=== PATIENT | female | born 1990 | race Caucasian/White ===

== ENCOUNTER 2016-09-02 13:59 | Inpatient (IN) | payer OTHER ==
[~2016-09-02] VITALS: Ht 154.9 cm; Wt 65.3 kg
[2016-09-02] MEDS ORDERED: LACTATED RINGER'S 1000ML 1,000 ML IV PRN (14:17)
--- NOTE | 2016-09-02 14:21 | Progress Note ---
Progress Note Date of Service Sep 02, 2016. Progress Note Admit Note 26 F P2002 at 37.6 weeks admitted in active labor. Cervix 8/100/-1/vertex/ intact. GBS is negative. FHT Cat 1. Will admit in active labor.
[2016-09-02] MEDS ORDERED: LACTATED RINGER'S 1000ML 1,000 ML IV SCH ×2 (14:30→15:07)
[2016-09-02] MEDS ORDERED: PATIENT'S ALLERGY INFO NEEDS ENTERED SCH (14:30)
[2016-09-02 14:44] LABS: HEMATOCRIT 37.9 % (37-47); MEAN CELL VOLUME 84.2 fL (80-100); MEAN CORPUSCULAR HEMOGLOBIN 30.7 pg (25-34); MEAN CORPUSCULAR HGB CONC 36.4 g/dl (32-36); MEAN PLATELET VOLUME 10.2 fL (7.4-10.4); PLATELET COUNT 268 K/uL (130-400); WHITE BLOOD COUNT 14.94 K/uL (4.8-10.8)
[2016-09-02] MEDS ORDERED: OXYTOCIN 30 UNITS/500ML NSS IV ONE (14:50)
--- NOTE | 2016-09-02 14:50 | Progress Note ---
Progress Note Date of Service Sep 02, 2016. Progress Note cervix with anterior lip/0 AROM with clear fluid FHT Cat 1
--- NOTE | 2016-09-02 15:13 | Vaginal Delivery Summary ---
Vaginal Delivery Summary Delivery Note live male over intact perineum with Apgars 9/9. Delayed cord clamping followed by cord blood collection and spontaneous delivery of intact placenta. No tears. EBL 200 ml. Final sponge and instrument count are correct. Mom and baby stable.
[2016-09-02] MEDS ORDERED: BENZOCAINE 20% AER SPR 82.5 GM CAN EXT PRN (15:15)
[2016-09-02] MEDS ORDERED: DIPHTHERIA/TETANUS/PERTUSSIS 0.5 ML SYR/VIAL IM. ONE (15:15)
[2016-09-02] MEDS ORDERED: SUPERCREAM 0.870 % 15GM JAR EXT PRN (15:15)
[2016-09-02] MEDS ORDERED: LANOLIN OINT EXT PRN ×2 (15:15)
[2016-09-02] MEDS ORDERED: ACETAMINOPHEN/CODEINE 300/30MG TAB PO PRN (15:15)
[2016-09-02] MEDS ORDERED: OXYTOCIN 30 UNITS/500ML NSS IV PRN (15:15)
[2016-09-02] MEDS ORDERED: IBUPROFEN 600 MG TAB PO PRN (15:15)
[2016-09-02] MEDS ORDERED: HYDROCORTISONE ACETATE 25 MG SUPP PR PRN (15:15)
[2016-09-02] MEDS ORDERED: PRENTAB26 PO (15:28)
[2016-09-02] MEDS ORDERED: CALC-51 (15:28)
[2016-09-02] MEDS ORDERED: [UNRECOGNIZED DRUG - CODE] (15:28)
[2016-09-02] MEDS ORDERED: OMEG340C (15:28)
[2016-09-02 15:32] VITALS: Ht 154.9 cm; Wt 65.3 kg
[2016-09-02 16:07] LABS: INR 0.9 (0.9-1.1); PARTIAL THROMBOPLASTIN RATIO 1.4
[2016-09-02 16:26] LABS: CREATININE 0.95 mg/dl (0.60-1.20)
[2016-09-02 18:30] VITALS: BP 118/82; PULSE 101; TEMP 37.2; O2SAT 98
[2016-09-02] MEDS: ACETAMINOPHEN 325 MG TAB PO PRN (20:13)
[2016-09-02] MEDS: DOCUSATE SODIUM 100 MG CAP PO SCH (20:13)
[2016-09-02 23:40] VITALS: BP 105/63; PULSE 82; TEMP 36.9; O2SAT 97
[2016-09-03 02:25] VITALS: BP 116/77; PULSE 65; TEMP 36.6; O2SAT 99
[2016-09-03] MEDS: ACETAMINOPHEN 325 MG TAB PO PRN ×2 (03:48→14:00)
[2016-09-03 07:30] VITALS: BP 106/73; PULSE 85; TEMP 36.7; O2SAT 98
--- NOTE | 2016-09-03 07:33 | OB/GYN Progress Note ---
[facility] Progress Note Date of Service: Sep 03, 2016. Patient is seen and examined. She feels well, no complaints. Ambulating without dizziness Voiding without difficulty Tolerating regular diet with out N&V Bleeding is minimal No fever/ chills/ CP/ SOB/ N&V/ Leg pain Breast feeding without problems Last 24 Hours Test 09/02/16 14:30 09/02/16 15:40 09/03/16 04:44 White Blood Count 14.94 K/uL Red Blood Count 4.50 M/uL Hemoglobin 13.8 g/dL Hematocrit 37.9 % Mean Corpuscular Volume 84.2 fL Mean Corpuscular Hemoglobin 30.7 pg Mean Corpuscular Hemoglobin Concent 36.4 g/dl RDW Standard Deviation 39.9 fL RDW Coefficient of Variation 13.2 % Platelet Count 268 K/uL Mean Platelet Volume 10.2 fL Prothrombin Time 10.0 SECONDS Prothromb Time International Ratio 0.9 Activated Partial Thromboplast Time 37.1 SECONDS Partial Thromboplastin Ratio 1.4 Creatinine 0.95 mg/dl Est Creatinine Clear Calc Drug Dose 76.9 ml/min Estimated GFR () 95.1 Estimated GFR (Non- 82.1 PE: General: Alert, orientedx3, NAD Abd: soft, NT, fundus firm, below Umbilicus Perineum intact, Lochia rubra minimal Ext; NT, no edema AP: 26 yo s/p , ppd# 1 VSS Afebrile doing well Continue routine care All questions were answered D/C home: considering d/c home tonight
[2016-09-03] MEDS ORDERED: LVNIS40 SQ (07:36)
--- NOTE | 2016-09-03 07:37 | Discharge Instructions ---
Discharge Instructions Date of Service Sep 03, 2016. Admission Reason for Admission: R/O Labor Discharge Discharge Diagnosis / Problem: Discharge Goals Goal(s): Routine recovery after delivery Medications Continue Dispensed Medications: lansinoh Activity Recommendations Activity Limitations: as noted below Lifting Limitations: until after follow-up appointment Exercise/Sports Limitations: until after follow-up appointment May Resume Sexual Activity: after follow-up appointment Shower/Bathe: no limitations Driving or Machine Use: ACTIVITY RECOMMENDATIONS: * Gradual return to full activity over the next 2-3 weeks. * No lifting - nothing heavier than baby over the next 2-3 weeks. * Do not engage in vigorous exercise, sexual activity or sports until cleared by your physician. * Do not drive or operate any motorized equipment until cleared by your physician. * You may shower/bathe daily. BREAST CARE: If you are not breast feeding: * Wear a supportive bra 24 hours a day for one to two weeks. * Avoid stimulating your breasts and nipples as much as possible during the first few weeks after delivery. * When taking a shower, have the warm water hit your back, not breasts. * When your breasts feel full, apply ice packs. Usually three to four times a day helps ease the discomfort. * Take a mild pain medication (Tylenol/Motrin) when you are uncomfortable. If breast feeding: * Use breast milk to lubricate nipples. Lansinoh cream may be used for sore nipples. You do not need to remove cream prior to breast feeding. If using a different brand of cream, check the label for directions regarding removal of cream prior to nursing. * Wear a supportive bra. * If having problems with breasts or breast feeding, call a healthcare network pricing consultant or your health care provider. EPISIOTOMY CARE: After delivery, if you have an episiotomy (stitches), the following steps will ease discomfort and aid healing. * For the first 24 hours after delivery, place ice packs next to your episiotomy to help reduce swelling. * After the first 24 hour-period, sitz baths, either portable or in the tub, are suggested. A shower with a shower arm sprayed over the episiotomy may be comforting. * [place] care should be done after each voiding and bowel movement. Squirt warm water from a plastic bottle over the perineum (region of the body between the anus and urinary opening) and pat dry. * Use Dermoplast to ease discomfort. Shake container. [place] directly over the episiotomy. * Place a Tucks on a clean sanitary pad next to your episiotomy. OVER THE COUNTER MEDICATION: * For discomfort or pain, you may use Acetaminophen (Tylenol), Ibuprofen (Advil ), or Naproxen (Aleve) following the package directions. * For constipation you may use Colace following the package directions. SPECIAL CARE INSTRUCTIONS: When you are discharged from the hospital, it is important for you to follow the instructions listed below: * During the first week at home, you should be able to care for yourself and your baby. In addition, the usual light household activities are encouraged. * Limit your activities to the way you feel. Do not try to clean the house or move furniture. Be sensible. * If you actively engage in sports and have done so up until the time of your delivery, you may resume these activities as soon as you feel able. This may take up to one month or even longer. Use good judgment. * Continue to take your vitamins for at least six weeks after the of your baby. * Your diet need not be limited unless you were on a special diet before your delivery. Breast-feeding mothers need around 2500 calories per day and at least 64-80 ounces of fluid per day (8 to 10 glasses). * You should eat foods from the four major food groups. Crash diets or fad diets are to be avoided. Eating lean meats, fresh fruits and vegetables, low-fat dairy products, high fiber foods and a regular exercise program, will help you get back to your pre- weight without putting your health at risk. * Constipation is sometimes a problem after delivery. Take a mild laxative as needed. If breast feeding, Milk of Magnesia is acceptable to use. You may use a suppository or Fleets enema if no episiotomy. * A daily shower or tub bath is suggested. Be sure to thoroughly and gently dry the perineum. * A bloody vaginal discharge will usually continue until around four weeks post . A small amount of bleeding may continue for as long as six weeks. Vaginal discharge changes from the bright red bleeding after delivery to pink then brownish and finally yellowish-pink before becoming white and disappearing. * Bleeding may increase with activity. Your first period may come in 4-8 weeks. If you are breast feeding, your period may be delayed even longer. * [place] (sex) can begin whenever both you and your partner feel comfortable and do not have any form of genital infection. It is recommended that you wait until after your return appointment and discuss with your physician. If you have questions, please talk to your health care practitioner. A condom should be used to prevent infection and . * Foreplay, gentle intercourse and lubrication is very important the first several times to prevent pain. A water-based lubricant such as K-Y jelly or Astroglide may be used. * Tampons may be used six weeks after delivery. * Douching should be avoided for 6 weeks after delivery. * If you have RH negative blood and your baby is RH positive, you will receive RHOGAM by injection prior to discharge. The nurse will give you a card to keep with you that has the date and place that you received RHOGAM after delivery. * During your care, you had a Rubella screen done to check for the presence of rubella antibodies in your blood. If your test was negative, you will receive a Rubella vaccine prior to discharge. This vaccine may cause a fever, soreness at the injection site and flu-like symptoms. If these symptoms persist, notify your health care practitioner. is not advised for three months after a Rubella vaccine. There is a higher chance of having a baby with defects if conceived within three months of getting the vaccine. * If you were discharged 24 hours from delivery or before 48 hours: Visiting nurses will come to your home 48 hours after discharge to assess you and your baby. The visiting nurse will meet with you while you are in the hospital to arrange a time and get directions to your home. * Verbalizes understanding of car seat law as reviewed with patient nursing. * Car Seat hand-out given and reviewed with patient by nursing. * Shaken baby information reviewed with patient by nursing. Call you doctor if: * Heavy bleeding (saturating several pads an hour) or passing clots the size of your fist. * A fever >101 degrees F (38.3 degrees C) on two occasions four hours apart and/or chills. * Unusual pain in the pelvic or vaginal areas. * "Baby Blues" lasting longer than two weeks. If you have any questions or concerns, call your health care practitioner at . FOLLOW-UP VISIT: * Please call the office at to schedule a 6 week examination. It is important you keep this appointment. * It is important for you to make arrangements for either yearly or twice yearly check-ups thereafter. . Current Hospital Diet Patient's current hospital diet: Regular OB Diet Discharge Diet Recommended Diet: Regular Diet Pending Studies Studies pending at discharge: no Medical Emergencies . Who to Call and When: Medical Emergencies: If at any time you feel your situation is an emergency, please call 911 immediately. . Non-Emergent Contact Non-Emergency issues call your: Surgeon Call Non-Emergent contact if: temperature is above 100.5, your pain is not controlled, your pain is worsening . . "Provider Documentation" section prepared by Melisa Fu. . VTE Core Measure Inpt VTE Proph given/why not?: Enoxaparin (Lovenox)SQ
[2016-09-03] MEDS: DOCUSATE SODIUM 100 MG CAP PO SCH (07:51)
[2016-09-03] MEDS ORDERED: PRENATAL VITAMIN TAB PO SCH (08:00)
[2016-09-03] MEDS ORDERED: FERROUS SULFATE 325 MG TAB PO SCH (08:00)
[2016-09-03] MEDS ORDERED: ENOXAPARIN 40 MG/0.4 ML SYR SQ SCH (08:00)
[2016-09-03 12:02] VITALS: BP 102/70; PULSE 85; TEMP 36.7; O2SAT 98
[2016-09-03 15:30] VITALS: BP 121/71; PULSE 83; TEMP 36.8
[2016-09-03 19:25] VITALS: BP_DIAS 71; PULSE 83; TEMP 36.8
[2016-09-03] MEDS ORDERED: BISACODYL 5 MG TABEC PO SCH (20:00)
[2016-09-04] MEDS ORDERED: BISACODYL 10 MG SUPP PR PRN (07:00)
== END 2016-09-03 19:25 | disposition home or self-care (01) | DRG 775 ==
LOC: C.LD 13:59 → C.OPB 13:59 → C.LD 14:19 → C.OPB 14:19 → C.OBG 17:57 → EDSTATUS 09-17 14:00
PROVIDERS: ADMIT Obstetrics & Gynecology; ATTEND Obstetrics & Gynecology
PROC: 10E0XZZ Delivery of Products of Conception, External Approach (ICD-10-PCS; principal; 2016-09-02)
DX: O80 Encounter for full-term uncomplicated delivery (principal); Z37.0 Single live birth; Z3A.37 37 weeks gestation of pregnancy

== ENCOUNTER 2024-09-21 19:25 | Inpatient (IN) ==
[2024-09-21 19:48] LABS: Hematocrit (blood only) 38.1 % (37.0-47.0); Hemoglobin 12.0 g/dl (12.0-16.0); Immature Granulocytes # (auto) 0.07 K/uL (0.01-0.20); Immature Granulocytes % (auto) 0.5 %; Mean Corpuscular Hemoglobin 23.3 pg (25.0-34.0); Mean Corpuscular Volume 74.0 fL (80.0-100.0); Platelet Count 405 K/uL (130-400); RDW Standard Deviation 44.0 fL (36.4-46.3); Red Blood Count 5.15 M/uL (4.20-5.40); White Blood Count 15.45 K/ul (4.8-10.8)
--- NOTE | 2024-09-21 19:52 | Emergency Department Note ---
Impression & Plan Bilateral pulmonary embolism, Acute deep vein thrombosis (DVT) of left lower extremity ED Provider Note CHIEF COMPLAINT: Left leg pain HISTORY OF PRESENTING ILLNESS: This 34-year-old female patient presents to the emergency department for evaluation of left lower leg pain. 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 She states that her left leg is swollen, warm to the touch, and painful in her calf. She initially had pain with walking 3 days ago, but it is getting progressively worse and now has the swelling and warmth. She has been trying Tylenol and Icy Hot without improvement. Her DVT in the right leg was in 2012 that was believed to be triggered by . She was treated with Lovenox at that time. She states that she had the hypercoagulable workup at that time, but states that she was not told there were any abnormalities at that time. She is not on any blood thinners currently. No pain of the right leg. She denies any chest pain or SOB. She denies any other symptoms. She had a bee sting to the right leg last week and completed a course of steroids and antibiotics. The patient denies recent long car or plane rides or recent injury/trauma/surgery. Her grandfather had a history of blood clots. Denies any hormonal medication use. Denies any hemoptysis. REVIEW OF SYSTEMS: See HPI for pertinent positives and pertinent negatives. ALLERGIES: Oxycodone, Benadryl, Ibuprofen, Lidocaine, Medical Adhesive MEDICATIONS: None PAST MEDICAL HISTORY: History of DVT. Partial thyroidectomy for benign tumor PHYSICAL EXAM: VITALS: Vitals are noted on the nurse's note and reviewed by myself. GENERAL: Non toxic, in no acute distress, non-diaphoretic. SKIN/MUSCULOSKELETAL: The patient has edema and warmth to the posterior aspect of the left lower extremity with some induration distally. No fluctuance. No obvious cording. No significant redness and no ecchymosis. No bony tenderness to palpation of the left lower extremity. Positive Homans' sign. Full range of motion of the left ankle, toes, and knee with no evidence for septic arthritis. Normal sensation to light and sharp touch of the left lower extremity. Dorsalis pedis and posterior tibial pulse 2+. Capillary refill <2 sec. HEART: Regular rate and rhythm without murmurs gallops or rubs. LUNGS: Clear to auscultation bilaterally without wheezes, rales or rhonchi. No retractions or accessory muscle use. NEURO: Patient was alert and oriented. No focal neurological deficits. DIFFERENTIAL DIAGNOSIS: Differential diagnosis includes DVT, phlebitis, superficial venous thrombosis, contusion, musculoskeletal, infection, joint effusion, trauma, lymphedema, idiopathic, CHF, as well as other pathologies. ED COURSE AND MEDICAL DECISION MAKING: MEDICATIONS GIVEN: 1 L normal saline solution bolus. Tylenol 1000 mg IV. Heparin weight-based bolus and drip. MONITOR: Continuous alarm security or surveillance monitor: Order was placed for continuous alarm security or surveillance monitor. Patient was placed on the alarm security or surveillance monitor and continuous pulse ox. Patient was noted to be in normal sinus rhythm at an initial rate of 98 bpm per my interpretation. EKG: EKG was interpreted by myself as sinus tachycardia at [address]pm with no acute [address] or T wave changes. INTERPRETATION OF LABS: I interpreted the labs with full lab results as below in the lab section of this note. Laboratory results pertinent to the emergent complaint are discussed in the MDM section below. The patient was advised to follow up with their PCP and/or specialist(s) for further outpatient monitoring and management of any abnormal results. INTERPRETATION OF IMAGING: Imaging studies were interpreted by myself and read by radiology as per the imaging section of this note. The patient was advised to follow up with their PCP and/or specialist(s) for further outpatient management of any non-emergent abnormal findings. Venous Doppler of the left lower extremity showed a DVT involving the distal popliteal vein extending inferiorly through the peroneal and posterior tibial veins to the ankle. CTA of the chest with IV contrast showed bilateral segmental and subsegmental acute pulmonary embolisms more on the right side. A mosaic pattern of perfusion in both lower lobes, a small area of consolidation is noted in the posterior segment of the right lower lobe which could be atelectasis versus a small pulmonary infarct. CONSULTATIONS: STAT RAD radiologist, IMBRO radiologist, on-call hospitalist. CRITICAL CARE: I have personally spent 40 minutes of critical care time in the direct management of this patient. This includes bedside care, interpretation of diagnostic studies, and testing, discussion with consultants, patient, and family members, and other required patient management activities. This 40 minutes is in excess of all separately billable procedures. MDM SUMMARY: The patient was seen during a time of extreme volume and extreme acuity. Nursing triage protocols were initiated with IV lock, labs, and/or imaging studies conducted by protocol in the triage area. The patient was initially evaluated in a triage room and then re-evaluated once they were taken back to an exam room. The patient started with pain in her left calf 3 days ago. The symptoms are getting progressively worse and now she has swelling and warmth to the left calf. She has a previous history of a DVT in the right leg in 2013 secondary to . The patient was treated with Lovenox at that time. She states that she had a hypercoagulable workup without known abnormalities. She is not currently on any blood thinners. She denies any chest pain or shortness of breath. She denies any pain in the right leg at this time. The patient was given 1 L normal saline solution bolus. She was given Tylenol 1000 mg IV. White blood cell count elevated at 15.45. The patient was recently on steroids for a bee sting which may have contributed to this elevated white blood cell count. Hemoglobin normal at 12. Platelet count elevated at 405. PT/INR were normal. CMP normal. Serum negative. Urinalysis ordered by nursing protocol appears contaminated rather than infected. She has no urinary symptoms. The radiologist from [facility] contacted me in regards to the large DVT in her left lower extremity. Venous Doppler of the left lower extremity showed a DVT involving the distal popliteal vein extending inferiorly through the peroneal and posterior tibial veins to the ankle. I again asked the patient whether she had any chest pain or shortness of breath. She again denied any chest pain or shortness of breath. The patient was more tachycardic when she first arrived, but states that she was very anxious and nervous upon arrival. The patient's heart rate did improve, but continued to have intermittent episodes of tachycardia. On an ambulatory trial, she did have a drop in her pulse ox down to 94% and she became more tachycardic. Therefore, CTA of the chest with IV contrast was obtained to evaluate for PE. The patient never became hypoxic while in the emergency department. The radiologist from [facility] contacted me to let me know about the findings of multiple PE with possible small pulmonary infarct seen on the CT scan of the chest. CTA of the chest with IV contrast showed bilateral segmental and subsegmental acute pulmonary embolisms more on the right side. A mosaic pattern of perfusion in both lower lobes, a small area of consolidation is noted in the posterior segment of the right lower lobe which could be atelectasis versus a small pulmonary infarct. The patient stated that she had a previous hypercoagulable workup where she lived previously that she thought was normal, but she never actually saw the results. However, the patient's large DVT and multiple PEs with only 3 days of symptoms in her leg appears to be unprovoked this time where last time was presumed to be the provocation. Therefore, a repeat hypercoagulable workup was obtained. The patient denied any history of GI bleeding, ulcers, or problems with blood thinners in the past. She denies any symptoms of bleeding. The patient was started on a weight-based heparin bolus and drip. I spoke with the on-call hospitalist who agreed to admit the patient for further evaluation and treatment. Please refer to their dictation for further details. The patient's care was transferred in stable condition. DIAGNOSIS: Multiple bilateral PEs Large DVT of the left lower extremity Past Med/Surg History Problem List (Updated 09/22/24 @ 02:17 by Cecilia Lam PA-C) Acute deep vein thrombosis (DVT) of left lower extremity (Acute) Bilateral pulmonary embolism (Acute) Medical History (Updated 09/22/24 @ 02:17 by Cecilia Lam PA-C) No pertinent past medical history Surgical History No pertinent past surgical history Social History Smoking Status: Never smoker Preferred Language: Tunisian Feels Safe at Home: Yes Allergies Allergies Allergy/AdvReac Type Severity Reaction Status Date / Time diphenhydramine Allergy Intermediate HIVES Verified 09/21/24 21:52 ibuprofen Allergy Intermediate HIVES Verified 09/21/24 21:52 oxycodone Allergy Intermediate HIVES Verified 09/21/24 21:52 lidocaine Allergy Mild Rash Verified 09/21/24 21:52 Home Meds Home Medications Medication Instructions Recorded Confirmed acetaminophen 325 mg tablet 650 mg PO DIRECTED PRN Pain 09/21/24 09/21/24 (Tylenol) Results & Data (ED) Vital Signs Vital Signs - 24 hr 09/21/24 19:27 09/21/24 21:10 09/21/24 21:11 Temperature 36.8 C Temperature Source Temporal Artery Scan Pulse Rate 124 H 96 H 93 H Pulse Rate [Exercises] Respiratory Rate 17 19 Respiratory Rate [Exercises] Respiratory Effort / Characteristics Non-Labored Spontaneous Respiratory Depth Normal Respiratory Pattern Regular Blood Pressure 144/97 H 142/88 H Blood Pressure Mean 112 102 Pulse Oximetry 100 99 Pulse Oximetry [Exercises] Oxygen Delivery Method Room Air Sepsis Recent Fever Within 48 Hours No Sepsis New/Unexplained Change in Mental Status N/A Sepsis Action Taken by Nursing No Action Required 09/21/24 21:30 09/21/24 22:00 09/21/24 22:30 Temperature Temperature Source Pulse Rate 90 92 H 90 Pulse Rate [Exercises] Respiratory Rate 18 22 24 Respiratory Rate [Exercises] Respiratory Effort / Characteristics Respiratory Depth Respiratory Pattern Blood Pressure 122/86 134/84 113/79 Blood Pressure Mean 95 98 88 Pulse Oximetry 100 99 97 Pulse Oximetry [Exercises] Oxygen Delivery Method Sepsis Recent Fever Within 48 Hours Sepsis New/Unexplained Change in Mental Status Sepsis Action Taken by Nursing 09/21/24 23:13 Temperature Temperature Source Pulse Rate Pulse Rate [Exercises] 114 H Respiratory Rate Respiratory Rate [Exercises] 20 Respiratory Effort / Characteristics Respiratory Depth Respiratory Pattern Blood Pressure Blood Pressure Mean Pulse Oximetry Pulse Oximetry [Exercises] 94 Oxygen Delivery Method Room Air Sepsis Recent Fever Within 48 Hours Sepsis New/Unexplained Change in Mental Status Sepsis Action Taken by Nursing Laboratory Data 09/21/24 19:32 09/21/24 19:32 Lab Results 09/21/24 09/21/24 Range/Units 19:32 19:43 WBC 15.45 H (4.8-10.8) K/ul RBC 5.15 (4.20-5.40) M/uL Hgb 12.0 (12.0-16.0) g/dl Hct 38.1 (37.0-47.0) % MCV 74.0 L (80.0-100.0) fL MCH 23.3 L (25.0-34.0) pg MCHC 31.5 L (32.0-36.0) g/dL RDW Std Deviation 44.0 (36.4-46.3) fL RDW Coeff of Janina 16.7 H (11.5-14.5) % Plt Count 405 H (130-400) K/uL MPV 9.9 (9.4-12.4) fL Immature Gran % (Auto) 0.5 % Neut % (Auto) 67.7 % Lymph % (Auto) 18.8 % Richardson % (Auto) 8.2 % Eos % (Auto) 4.3 % Baso % (Auto) 0.5 % Neut # (Auto) 10.47 H (1.40-6.50) K/uL Lymph # (Auto) 2.91 (1.20-3.40) K/uL Richardson # (Auto) 1.27 H (0.11-0.59) K/uL Eos # (Auto) 0.66 H (0.00-0.50) K/uL Baso # (Auto) 0.07 (0.00-0.20) K/uL Immature Gran # (Auto) 0.07 (0.01-0.20) K/uL PT 9.7 (9.0-12.0) Seconds INR 0.9 (0.9-1.1) Sodium 138 (136-145) mmol/L Potassium 4.1 (3.5-5.1) mmol/L Chloride 103 (98-107) mmol/L Carbon Dioxide 28 (21-32) mmol/L Anion Gap 7 (3-11) BUN 15 (6-23) mg/dl Creatinine 0.92 (0.6-1.2) mg/dl Est Cr Clr Drug Dosing 76.0 ml/min eGFR 83.27 BUN/Creatinine Ratio 16.3 (10-20) Glucose 83 (70-99(Fasting)) mg/dl Calcium 9.0 (8.6-10.3) mg/dl Total Bilirubin 0.4 (0.2-1.0) mg/dl AST 12 L (13-39) U/L ALT 14 (7-52) U/L Alkaline Phosphatase 73 (34-104) U/L Total Protein 7.5 (6.0-8.3) gm/dl Albumin 4.1 (3.4-5.0) gm/dl Globulin 3.4 (2.5-4.0) gm/dl Albumin/Globulin Ratio 1.2 (0.9-2) HCG, Qual Negative (Negative) Urine Color Yellow Urine Appearance Cloudy A (Clear) Urine pH 7.0 (4.5-7.5) Ur Specific [place] 1.024 (1.000-1.030) Urine Protein Negative (Negative) Urine Glucose (UA) Negative (Negative) Urine Ketones Trace H (Negative) Urine Blood Negative (Negative) Urine Nitrite Negative (Negative) Urine Bilirubin Negative (Negative) Urine Urobilinogen Negative (Negative) Ur Leukocyte Esterase 2+ H (Negative) Urine WBC (Auto) 6-10 H (0-5) /hpf Urine RBC (Auto) 0-2 (0-2) /hpf U Hyaline Cast (Auto) 0-2 (0-2) /lpf U Epithel Cells (Auto) 6-10 H (0-2) /hpf Urine Bacteria (Auto) None Seen (None Seen) Urine Comment Administered Medications Discontinued Medications Acetaminophen (Ofirmev) 1,000 mg in 100 mls @ 400 mls/hr IV NOW STA Stop: 09/21/24 20:30 Last Infusion: 09/21/24 20:51 Dose: Infused Documented By: Admin: 09/21/24 20:37 Dose: 400 mls/hr Documented By: MONROE Sodium Chloride (Nss) 1,000 mls @ 999 mls/hr IV .Q1H1M ONE Stop: 09/21/24 21:16 Last Infusion: 09/21/24 21:50 Dose: Infused Documented By: Admin: 09/21/24 20:37 Dose: 999 mls/hr Documented By: MONROE Ioversol (Optiray 320 125ml) 118 ml IV ONCE ONE Stop: 09/22/24 00:09 Last Admin: 09/22/24 00:09 Dose: 118 ml Documented By: MATT Imaging Data Radiologist's Impression: Venous Doppler Study 09/21/24 19:30 CR Exam(s): US VENOUS LEFT LOWER EXTREMITY EXAM: US Duplex Left Lower Extremity Veins CLINICAL HISTORY: Reason for exam: Leg deep vein thrombosis (DVT) suspected. TECHNIQUE: Real-time duplex ultrasound scan of the left lower extremity veins integrating B-mode two-dimensional vascular structure, Doppler spectral analysis, color flow Doppler imaging and compression. COMPARISON: No relevant prior studies available. FINDINGS: Deep veins: Unremarkable. No DVT in the visualized common femoral, femoral, proximal deep femoral veins. Occlusive thrombus within the distal left popliteal vein extending through the. Posterior tibial and peroneal veins to the ankle. The veins demonstrate normal color flow, are normally compressible, with normal phasic flow and/or augmentation response. Superficial veins: Unremarkable. No thrombus in the visualized great saphenous vein. Soft tissues: No acute findings. No popliteal cyst. IMPRESSION: DVT involving the distal popliteal vein extending inferiorly through the peroneal and posterior tibial veins to the ankle. Communications: Call Doctor DVT – acute, progressing Electronically signed by: Rogelio Loredo MD 09/21/24 22:56 PM Chest CTA 09/21/24 23:27 EXAM: CT angio chest PE protocol CLINICAL HISTORY: Pulmonary embolism. TECHNIQUE: Contiguous 3.[address] images of the chest were acquired with the administration of intravenous contrast. Coronal and sagittal reconstructions were obtained. 118 ml Optiray 320 was administered for post-contrast images. One of the following dose reduction techniques was utilized for this exam: Automated exposure control, adjustment of the mA and/or kV according to patient size, and use of iterative reconstruction. CTDI: 23.91 mGy, DLP: 646.68 mGy-cm COMPARISON: None. FINDINGS: Lungs: Ground-glass opacities are noted at the dependent portions of both lungs, which could represent exaggerated gravity-dependent atelectasis. Mosaic pattern of perfusion in the lower lobes. A small area of consolidation is noted in the posterior segment of the right lower lobe. No pleural effusion or pleural thickening. Mediastinum: No mediastinal mass or abnormal lymphadenopathy. Heart and Great Vessels: Normal heart size and configuration. No pericardial effusion. Normal caliber and course of the thoracic aorta and other great vessels. Pulmonary Arteries: The pulmonary trunk measures 2.4 cm. The right pulmonary artery measures 1.6 cm. The left pulmonary artery measures 1.4 cm. A subtle linear density is noted at the origin of the left main pulmonary artery, which could be due to motion artifact. A subtle small pulmonary embolism cannot be ruled out. No filling defects in the pulmonary trunk and right main pulmonary artery. Multiple filling defects are noted in the segmental and subsegmental branches of the right lower lobe arteries. A filling defect with focal expansion is noted in the posterolateral trunk of the right lower lobe artery, extending to its subsegmental branches. A filling defect is noted in the medial segmental branch of the right middle lobe artery. A filling defect is noted in a branch of the posterior segmental artery of the left lower lobe (image #[id number]/series [id number]). Bones: Multilevel Schmorl's nodes are noted. Chest Wall: Heterogeneous density of both breasts with likely cystic changes. Upper Abdomen: No abnormalities were noted in the visualized upper abdominal organs. Thyroid: Evidence of left thyroidectomy. Unremarkable right thyroid gland apart from the suggestion of microcystic changes at its posterior aspect. IMPRESSION: 1. Bilateral segmental and subsegmental acute pulmonary embolisms, more on the right side. 2. A mosaic pattern of perfusion in both lower lobes, a small area of consolidation is noted in the posterior segment of the right lower lobe could be atelectasis versus a small pulmonary infarct. Clinical correlation is advised. Electronically signed by Jimmy Schuler 09-22-2024 01:24 AM Discharge Plan Visit Data Chief Complaint: Swelling/Edema to Extremity Stated Complaint: LOWER LEFT LEG PAIN, POSSIBLE CLOT (HAS HISTORY) ED Provider: Layne Bernal ED Midlevel Provider: Cecilia Lam Discharge Problem: Bilateral pulmonary embolism, Acute deep vein thrombosis (DVT) of left lower extremity Patient Disposition: Admitted As Inpatient Condition: Fair Forms Stand Alone Forms: [facility] [employer] Prescriptions Prescriptions: No Action acetaminophen [Tylenol] 325 mg Tablet 650 mg PO DIRECTED PRN (Reason: Pain) Referrals Referrals: PCP,NO [Primary Care Provider] - Discharge Problem: Acute deep vein thrombosis (DVT) of left lower extremity Qualifiers: Affected thrombotic vein of extremity: other lower extremity vein Qualified Code(s): I82.492 - Acute embolism and thrombosis of other specified deep vein of left lower extremity
[2024-09-21 20:04] LABS: Alanine Aminotransferase 14.0 U/L (7-52); Albumin Globulin Ratio 1.2 (0.9-2); Alkaline Phosphatase 73.0 U/L (34-104); Anion Gap 7.0 (3-11); Bilirubin,Total 0.4 mg/dl (0.2-1.0); Blood Urea Nitrogen 15.0 mg/dl (6-23); Calcium 9.0 mg/dl (8.6-10.3); Carbon Dioxide 28.0 mmol/L (21-32); Chloride 103.0 mmol/L (98-107); Creatinine Clr Calc Pharmacy 76.0 ml/min; Globulin 3.4 gm/dl (2.5-4.0); Glucose 83.0 mg/dl (70-99(Fasting)); Potassium 4.1 mmol/L (3.5-5.1); Sodium 138.0 mmol/L (136-145); Total Protein 7.5 gm/dl (6.0-8.3)
[2024-09-21 20:09] LABS: Pregnancy Test, Serum Negative (Negative)
[2024-09-21 20:13] LABS: Appearance Urine Cloudy (Clear); Bacteria Urine Automated None Seen (None Seen); Cast Urine Automated 0-2 /lpf (0-2); Glucose Urine UA Negative (Negative); RBC Urine Automated 0-2 /hpf (0-2)
[2024-09-21 20:16] LABS: INR 0.9 (0.9-1.1); Prothrombin Time 9.7 Seconds (9.0-12.0)
[2024-09-21] MEDS: ACETAMINOPHEN 1,000 MG/100 ML VIAL IV STA (20:37)
[2024-09-21] MEDS: SODIUM CHLORIDE 0.9% 1,000 ML IV ONE (20:37)
--- NOTE | 2024-09-21 22:57 | Ultrasound Report ---
Exam(s): US VENOUS LEFT LOWER EXTREMITY EXAM: US Duplex Left Lower Extremity Veins CLINICAL HISTORY: Reason for exam: Leg deep vein thrombosis (DVT) suspected. TECHNIQUE: Real-time duplex ultrasound scan of the left lower extremity veins integrating B-mode two-dimensional vascular structure, Doppler spectral analysis, color flow Doppler imaging and compression. COMPARISON: No relevant prior studies available. FINDINGS: Deep veins: Unremarkable. No DVT in the visualized common femoral, femoral, proximal deep femoral veins. Occlusive thrombus within the distal left popliteal vein extending through the. Posterior tibial and peroneal veins to the ankle. The veins demonstrate normal color flow, are normally compressible, with normal phasic flow and/or augmentation response. Superficial veins: Unremarkable. No thrombus in the visualized great saphenous vein. Soft tissues: No acute findings. No popliteal cyst. IMPRESSION: DVT involving the distal popliteal vein extending inferiorly through the peroneal and posterior tibial veins to the ankle. Communications: Call Doctor DVT – acute, progressing Electronically signed by: Rogelio Loredo MD 09/21/24 22:56 PM
[2024-09-22] MEDS: OPTIRAY 320 125ml IV ONE (00:09)
--- NOTE | 2024-09-22 01:24 | CT Scan Report ---
EXAM: CT angio chest PE protocol CLINICAL HISTORY: Pulmonary embolism. TECHNIQUE: Contiguous 3.[address] images of the chest were acquired with the administration of intravenous contrast. Coronal and sagittal reconstructions were obtained. 118 ml Optiray 320 was administered for post-contrast images. One of the following dose reduction techniques was utilized for this exam: Automated exposure control, adjustment of the mA and/or kV according to patient size, and use of iterative reconstruction. CTDI: 23.91 mGy, DLP: 646.68 mGy-cm COMPARISON: None. FINDINGS: Lungs: Ground-glass opacities are noted at the dependent portions of both lungs, which could represent exaggerated gravity-dependent atelectasis. Mosaic pattern of perfusion in the lower lobes. A small area of consolidation is noted in the posterior segment of the right lower lobe. No pleural effusion or pleural thickening. Mediastinum: No mediastinal mass or abnormal lymphadenopathy. Heart and Great Vessels: Normal heart size and configuration. No pericardial effusion. Normal caliber and course of the thoracic aorta and other great vessels. Pulmonary Arteries: The pulmonary trunk measures 2.4 cm. The right pulmonary artery measures 1.6 cm. The left pulmonary artery measures 1.4 cm. A subtle linear density is noted at the origin of the left main pulmonary artery, which could be due to motion artifact. A subtle small pulmonary embolism cannot be ruled out. No filling defects in the pulmonary trunk and right main pulmonary artery. Multiple filling defects are noted in the segmental and subsegmental branches of the right lower lobe arteries. A filling defect with focal expansion is noted in the posterolateral trunk of the right lower lobe artery, extending to its subsegmental branches. A filling defect is noted in the medial segmental branch of the right middle lobe artery. A filling defect is noted in a branch of the posterior segmental artery of the left lower lobe (image #[id number]/series [id number]). Bones: Multilevel Schmorl's nodes are noted. Chest Wall: Heterogeneous density of both breasts with likely cystic changes. Upper Abdomen: No abnormalities were noted in the visualized upper abdominal organs. Thyroid: Evidence of left thyroidectomy. Unremarkable right thyroid gland apart from the suggestion of microcystic changes at its posterior aspect. IMPRESSION: 1. Bilateral segmental and subsegmental acute pulmonary embolisms, more on the right side. 2. A mosaic pattern of perfusion in both lower lobes, a small area of consolidation is noted in the posterior segment of the right lower lobe could be atelectasis versus a small pulmonary infarct. Clinical correlation is advised. Electronically signed by Jimmy Schuler 09-22-2024 01:24 AM
[2024-09-22] MEDS: Heparin IV Adult Wt-Based Standard w/ INITIAL Bolus Protocol IV STA (02:11)
[2024-09-22] MEDS: HEPARIN 25000 UNIT/500 ML D5W 25,000 UNITS/500 ML BAG IV SCH (02:24)
[2024-09-22] MEDS: HEPARIN SOD (PORCINE) 1000 UNIT/ML IV ONE (02:24)
[2024-09-22 02:31] LABS: Partial Thromboplastin Time 26 Seconds (21-31)
--- NOTE | 2024-09-22 03:23 | History & Physical Report ---
Date of Service September 22, 2024 Assessment & Plan (1) Acute deep vein thrombosis (DVT) of left lower extremity: Plan: 34 year-old female with past medical history significant for right leg DVT during comes because of swelling and pain in the left lower extremity and found to have DVT and also bilateral PE. Since Friday she noticed pain in the left lower extremity and today noticed swelling in the left leg which prompted her come to the ER. Denies any fevers. No chest pain or shortness of breath. No cough. No runny nose or sore throat. No nausea. No abdominal pain. Normal bowel and bladder movements. Denies blood in stools. Hemodynamic s are okay. In 2012 during her first at 13 weeks she was found to have PE and she was treated with Lovenox. And from [id number] she had 3 pregnancies and all the pregnancies she was treated with Lovenox and it was stopped after 6 months post . From 2014 she is not on any blood thinners. Family history significant for grandfather having blood clots. Couple of weeks ago she had bee bite treated with steroid and antibiotic.No recent surgery or long distance travel. 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 Since Friday she noticed pain in the left lower extremity and today noticed swelling in the left leg which prompted her come to the ER. Denies any fevers. No chest pain or shortness of breath. No cough. No runny nose or sore throat. No nausea. No abdominal pain. Normal bowel and bladder movements. Denies blood in stools. Hemodynamics are okay. In 2012 during her first at 13 weeks she was found to have PE and she was treated with Lovenox. And from [id number] she had 3 pregnancies and all the pregnancies she was treated with Lovenox and it was stopped after 6 months post . From 2014 she is not on any blood thinners. Family history significant for grandfather having blood clots. Couple of weeks ago she had bee bite treated with steroid and antibiotic.No recent surgery or long distance travel. Past medical history as mentioned above. Past surgical history. 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 Social history. No smoking. No alcoholism. No drug use. Family history. Grandfather had blood clots Allergies Allergy/AdvReac Type Severity Reaction Status Date / Time diphenhydramine Allergy Intermediate HIVES Verified 09/21/24 21:52 ibuprofen Allergy Intermediate HIVES Verified 09/21/24 21:52 oxycodone Allergy Intermediate HIVES Verified 09/21/24 21:52 lidocaine Allergy Mild Rash Verified 09/21/24 21:52 Home Medications Medication Instructions Recorded Confirmed Type acetaminophen 325 mg tablet 650 mg PO DIRECTED PRN Pain 09/21/24 09/21/24 History (Tylenol) Past Med/Surg History Problem List (Updated 09/22/24 @ 02:17 by Cecilia Lam PA-C) Acute deep vein thrombosis (DVT) of left lower extremity (Acute) Bilateral pulmonary embolism (Acute) Medical History (Updated 09/22/24 @ 02:17 by Cecilia Lam PA-C) No pertinent past medical history Surgical History No pertinent past surgical history Social History Smoking Status: Never smoker Hx Alcohol Use: No Hx Substance Use: No Preferred Language: Georgian Communication Ability: Effective Senior Bi Developer Required: No Beliefs That Will Affect Care: None Current Living Situation: Spouse Other Information That Helps Us Care for You: No Feels Safe at Home: Yes Safety Concerns: Feels Safe At This Time Review of Systems Review of Systems: All systems reviewed & are unremarkable except as noted in HPI & below Physical Exam Physical Exam: General- Not in distress Head- atraumatic Eyes- PERRL. ENT- oropharynx clear Neck- supple, no JVD. Lungs- clear to auscultation no wheezing or crackles Heart- regular rhythm; no murmur, no gallop. Abdomen- normal bowel sounds, soft, nontender, no distension Extremities- Left leg is mildly swollen and erythematous and tender Neuro- alert, oriented PERRL, no facial palsy; no dysarthria; moves extremities Results & Data Results & Data Vital Signs (Past 12 Hours) Vital Signs Temp Pulse Pulse Resp Resp BP Pulse Ox 09/21/24 23:13 114 H 20 09/21/24 22:30 90 24 113/79 97 09/21/24 22:00 92 H 22 134/84 99 09/21/24 21:30 90 18 122/86 100 09/21/24 21:11 93 H 09/21/24 21:10 96 H 19 142/88 H 99 09/21/24 19:27 36.8 C 124 H 17 144/97 H 100 Pulse Ox O2 Del Method 09/21/24 23:13 94 Room Air 09/21/24 22:30 09/21/24 22:00 09/21/24 21:30 09/21/24 21:11 09/21/24 21:10 09/21/24 19:27 Room Air Diagnostic Findings Laboratory Results WBC 15.45 K/ul (4.8-10.8) H 09/21/24 19:32 RBC 5.15 M/uL (4.20-5.40) 09/21/24 19:32 Hgb 12.0 g/dl (12.0-16.0) 09/21/24 19:32 Hct 38.1 % (37.0-47.0) 09/21/24 19:32 MCV 74.0 fL (80.0-100.0) L 09/21/24 19:32 MCH 23.3 pg (25.0-34.0) L 09/21/24 19:32 MCHC 31.5 g/dL (32.0-36.0) L 09/21/24 19:32 RDW Std Deviation 44.0 fL (36.4-46.3) 09/21/24 19:32 RDW Coeff of Janina 16.7 % (11.5-14.5) H 09/21/24 19:32 Plt Count 405 K/uL (130-400) H 09/21/24 19:32 MPV 9.9 fL (9.4-12.4) 09/21/24 19:32 Immature Gran % (Auto) 0.5 % 09/21/24 19:32 Neut % (Auto) 67.7 % 09/21/24 19:32 Lymph % (Auto) 18.8 % 09/21/24 19:32 [place] % (Auto) 8.2 % 09/21/24 19:32 Eos % (Auto) 4.3 % 09/21/24 19:32 Baso % (Auto) 0.5 % 09/21/24 19:32 Neut # (Auto) 10.47 K/uL (1.40-6.50) H 09/21/24 19:32 Lymph # (Auto) 2.91 K/uL (1.20-3.40) 09/21/24 19:32 [place] # (Auto) 1.27 K/uL (0.11-0.59) H 09/21/24 19:32 Eos # (Auto) 0.66 K/uL (0.00-0.50) H 09/21/24 19:32 Baso # (Auto) 0.07 K/uL (0.00-0.20) 09/21/24 19:32 Immature Gran # (Auto) 0.07 K/uL (0.01-0.20) 09/21/24 19:32 PT 9.7 Seconds (9.0-12.0) 09/21/24 19:32 INR 0.9 (0.9-1.1) 09/21/24 19:32 APTT 26 Seconds (21-31) 09/21/24 19:32 PTT Ratio 1.0 09/21/24 19:32 Sodium 138 mmol/L (136-145) 09/21/24 19:32 Potassium 4.1 mmol/L (3.5-5.1) 09/21/24 19:32 Chloride 103 mmol/L (98-107) 09/21/24 19:32 Carbon Dioxide 28 mmol/L (21-32) 09/21/24 19:32 Anion Gap 7 (3-11) 09/21/24 19:32 BUN 15 mg/dl (6-23) 09/21/24 19:32 Creatinine 0.92 mg/dl (0.6-1.2) 09/21/24 19:32 Est Cr Clr Drug Dosing 76.0 ml/min 09/21/24 19:32 eGFR 83.27 09/21/24 19:32 BUN/Creatinine Ratio 16.3 (10-20) 09/21/24 19:32 Glucose 83 mg/dl (70-99(Fasting)) 09/21/24 19:32 Calcium 9.0 mg/dl (8.6-10.3) 09/21/24 19:32 Total Bilirubin 0.4 mg/dl (0.2-1.0) 09/21/24 19:32 AST 12 U/L (13-39) L 09/21/24 19:32 ALT 14 U/L (7-52) 09/21/24 19:32 Alkaline Phosphatase 73 U/L (34-104) 09/21/24 19:32 Total Protein 7.5 gm/dl (6.0-8.3) 09/21/24 19:32 Albumin 4.1 gm/dl (3.4-5.0) 09/21/24 19:32 Globulin 3.4 gm/dl (2.5-4.0) 09/21/24 19:32 Albumin/Globulin Ratio 1.2 (0.9-2) 09/21/24 19:32 HCG, Qual Negative (Negative) 09/21/24 19:32 Urine Color Yellow 09/21/24 19:43 Urine Appearance Cloudy (Clear) A 09/21/24 19:43 Urine pH 7.0 (4.5-7.5) 09/21/24 19:43 Ur Specific [place] 1.024 (1.000-1.030) 09/21/24 19:43 Urine Protein Negative (Negative) 09/21/24 19:43 Urine Glucose (UA) Negative (Negative) 09/21/24 19:43 Urine Ketones Trace (Negative) H 09/21/24 19:43 Urine Blood Negative (Negative) 09/21/24 19:43 Urine Nitrite Negative (Negative) 09/21/24 19:43 Urine Bilirubin Negative (Negative) 09/21/24 19:43 Urine Urobilinogen Negative (Negative) 09/21/24 19:43 Ur Leukocyte Esterase 2+ (Negative) H 09/21/24 19:43 Urine WBC (Auto) 6-10 /hpf (0-5) H 09/21/24 19:43 Urine RBC (Auto) 0-2 /hpf (0-2) 09/21/24 19:43 U Hyaline Cast (Auto) 0-2 /lpf (0-2) 09/21/24 19:43 U Epithel Cells (Auto) 6-10 /hpf (0-2) H 09/21/24 19:43 Urine Bacteria (Auto) None Seen (None Seen) 09/21/24 19:43 Urine Comment 09/21/24 19:43 Impressions Venous Doppler Study 09/21/24 19:30 CR Exam(s): US VENOUS LEFT LOWER EXTREMITY EXAM: US Duplex Left Lower Extremity Veins CLINICAL HISTORY: Reason for exam: Leg deep vein thrombosis (DVT) suspected. TECHNIQUE: Real-time duplex ultrasound scan of the left lower extremity veins integrating B-mode two-dimensional vascular structure, Doppler spectral analysis, color flow Doppler imaging and compression. COMPARISON: No relevant prior studies available. FINDINGS: Deep veins: Unremarkable. No DVT in the visualized common femoral, femoral, proximal deep femoral veins. Occlusive thrombus within the distal left popliteal vein extending through the. Posterior tibial and peroneal veins to the ankle. The veins demonstrate normal color flow, are normally compressible, with normal phasic flow and/or augmentation response. Superficial veins: Unremarkable. No thrombus in the visualized great saphenous vein. Soft tissues: No acute findings. No popliteal cyst. IMPRESSION: DVT involving the distal popliteal vein extending inferiorly through the peroneal and posterior tibial veins to the ankle. Communications: Call Doctor DVT – acute, progressing Electronically signed by: Rogelio Loredo MD 09/21/24 22:56 PM Chest CTA 09/21/24 23:27 EXAM: CT angio chest PE protocol CLINICAL HISTORY: Pulmonary embolism. TECHNIQUE: Contiguous 3.[address] images of the chest were acquired with the administration of intravenous contrast. Coronal and sagittal reconstructions were obtained. 118 ml Optiray 320 was administered for post-contrast images. One of the following dose reduction techniques was utilized for this exam: Automated exposure control, adjustment of the mA and/or kV according to patient size, and use of iterative reconstruction. CTDI: 23.91 mGy, DLP: 646.68 mGy-cm COMPARISON: None. FINDINGS: Lungs: Ground-glass opacities are noted at the dependent portions of both lungs, which could represent exaggerated gravity-dependent atelectasis. Mosaic pattern of perfusion in the lower lobes. A small area of consolidation is noted in the posterior segment of the right lower lobe. No pleural effusion or pleural thickening. Mediastinum: No mediastinal mass or abnormal lymphadenopathy. Heart and Great Vessels: Normal heart size and configuration. No pericardial effusion. Normal caliber and course of the thoracic aorta and other great vessels. Pulmonary Arteries: The pulmonary trunk measures 2.4 cm. The right pulmonary artery measures 1.6 cm. The left pulmonary artery measures 1.4 cm. A subtle linear density is noted at the origin of the left main pulmonary artery, which could be due to motion artifact. A subtle small pulmonary embolism cannot be ruled out. No filling defects in the pulmonary trunk and right main pulmonary artery. Multiple filling defects are noted in the segmental and subsegmental branches of the right lower lobe arteries. A filling defect with focal expansion is noted in the posterolateral trunk of the right lower lobe artery, extending to its subsegmental branches. A filling defect is noted in the medial segmental branch of the right middle lobe artery. A filling defect is noted in a branch of the posterior segmental artery of the left lower lobe (image #[id number] [id number]). Bones: Multilevel Schmorl's nodes are noted. Chest Wall: Heterogeneous density of both breasts with likely cystic changes. Upper Abdomen: No abnormalities were noted in the visualized upper abdominal organs. Thyroid: Evidence of left thyroidectomy. Unremarkable right thyroid gland apart from the suggestion of microcystic changes at its posterior aspect. IMPRESSION: 1. Bilateral segmental and subsegmental acute pulmonary embolisms, more on the right side. 2. A mosaic pattern of perfusion in both lower lobes, a small area of consolidation is noted in the posterior segment of the right lower lobe could be atelectasis versus a small pulmonary infarct. Clinical correlation is advised. Electronically signed by Jimmy Schuler 09-22-2024 01:24 AM ECG Additional Comments: ECG sinus tach rate of 113. No acute ST changes seen. QTc 441. Code Status & VTE Plan VTE Prophylaxis Plan VTE Prophylaxis will be ordered: Yes (1) Acute deep vein thrombosis (DVT) of left lower extremity Affected thrombotic vein of extremity: other lower extremity vein Qualified Code(s): I82.492 - Acute embolism and thrombosis of other specified deep vein of left lower extremity
[2024-09-22] MEDS ORDERED: NITROGLYCERIN SL 0.4 MG/TAB TAB SL PRN (05:40)
[2024-09-22 08:12] LABS: Hematocrit (blood only) 35.3 % (37.0-47.0); Hemoglobin 11.2 g/dl (12.0-16.0); Immature Granulocytes # (auto) 0.05 K/uL (0.01-0.20); Immature Granulocytes % (auto) 0.5 %; Mean Corpuscular Hemoglobin 23.1 pg (25.0-34.0); Mean Corpuscular Volume 72.8 fL (80.0-100.0); Platelet Count 299 K/uL (130-400); RDW Standard Deviation 43.7 fL (36.4-46.3); Red Blood Count 4.85 M/uL (4.20-5.40); White Blood Count 10.29 K/ul (4.8-10.8)
[2024-09-22] MEDS: ACETAMINOPHEN 325 MG TAB PO PRN (08:25)
[2024-09-22 08:32] LABS: Anion Gap 6.0 (3-11); Blood Urea Nitrogen 10.0 mg/dl (6-23); Calcium 8.3 mg/dl (8.6-10.3); Carbon Dioxide 24.0 mmol/L (21-32); Chloride 107.0 mmol/L (98-107); Creatinine Clr Calc Pharmacy 104.3 ml/min; Glucose 97.0 mg/dl (70-99(Fasting)); Magnesium 2.0 mg/dl (1.7-2.4); Potassium 3.9 mmol/L (3.5-5.1); Sodium 137.0 mmol/L (136-145)
[2024-09-22 08:35] LABS: ANTI-Xa, UFH(UnfractionatedHep 0.39 IU/ml (0.3-0.7)
--- NOTE | 2024-09-22 15:13 | Hospitalist Progress Note ---
Date of Service September 22, 2024 Assessment & Plan (1) Acute deep vein thrombosis (DVT) of left lower extremity: Plan: 34 year-old female with past medical history significant for right leg DVT during comes because of swelling and pain in the left lower extremity and found to have DVT and also bilateral PE. Since Friday she noticed pain in the left lower extremity and today noticed swelling in the left leg which prompted her come to the ER. Denies any fevers. No chest pain or shortness of breath. No cough. No runny nose or sore throat. No nausea. No abdominal pain. Normal bowel and bladder movements. Denies blood in stools. Hemodynamic s are okay. In 2012 during her first at 13 weeks she was found to have PE and she was treated with Lovenox. And from [id number] she had 3 pregnancies and all the pregnancies she was treated with Lovenox and it was stopped after 6 months post . From 2014 she is not on any blood thinners. Family history significant for grandfather having blood clots. Couple of weeks ago she had bee bite treated with steroid and antibiotic.No recent surgery or long distance travel. Acute DVT of left lower extremity Acute bilateral PE H/O DVT in the right leg during in 2012 Unprovoked PE, DVT -Hypercoagulable workup pending --ECHO: Pending -Continue IV heparin for now Saturating well on room air Advised to follow-up with hematology as outpatient DVT Px: IV heparin CODE STATUS Full code Disposition Expect to discharge home when stable Admission and Anticipated Discharge Date Admission Date: September 22, 2024 Subjective Patient is seen and examined at bedside States having right-sided pleuritic pain but otherwise no complaints No bleeding issues while on IV heparin Denies any dyspnea, dizziness, nausea, vomiting, abdominal pain Family at bedside Review of Systems Review of Systems: All systems reviewed & are unremarkable except as noted in Subjective Physical Exam Physical Exam: Physical Exam: Vitals signs as noted above General Appearance:Moderately built and nourished, no apparent distress Head: normocephalic, Atraumatic Eyes: normal inspection, EOMI Neck: supple, Trachea midline Respiratory/Chest: Normal breath sounds, CTA, No accessory muscle use Cardiovascular: S1, S2, No murmur Abdomen/GI:Soft, Non tender, Bowel sounds present Extremities/Musculoskeletal:normal inspection, no edema Neurologic/Psych:AAOX3, grossly no focal neurological deficits Skin: normal color, warm Results & Data Results & Data Vital Signs (Past 12 Hours) Vital Signs Pulse Pulse Resp BP BP Pulse Ox Pulse Ox 09/22/24 13:00 89 22 116/75 97 09/22/24 07:21 75 16 114/69 97 09/22/24 07:15 76 09/22/24 06:30 80 21 97 09/22/24 06:24 76 18 97 09/22/24 06:00 117/74 09/22/24 06:00 75 20 117/74 99 09/22/24 06:00 98 09/22/24 05:09 82 17 109/75 97 09/22/24 05:00 81 19 109/75 98 09/22/24 04:31 79 09/22/24 04:12 89 16 100 09/22/24 04:00 76 19 117/82 100 O2 Del Method O2 Del Method 09/22/24 13:00 Room Air 09/22/24 07:21 Room Air 09/22/24 07:15 09/22/24 06:30 Room Air 09/22/24 06:24 Room Air 09/22/24 06:00 09/22/24 06:00 Room Air 09/22/24 06:00 Room Air 09/22/24 05:09 Room Air 09/22/24 05:00 Room Air 09/22/24 04:31 09/22/24 04:12 Room Air 09/22/24 04:00 Room Air Laboratory Results Short CBC 09/21/24 09/22/24 Range/Units 19:32 07:57 WBC 15.45 H 10.29 (4.8-10.8) K/ul Hgb 12.0 11.2 L (12.0-16.0) g/dl Hct 38.1 35.3 L (37.0-47.0) % Plt Count 405 H 299 (130-400) K/uL BMP 09/21/24 09/22/24 19:32 07:57 Sodium 138 137 Potassium 4.1 3.9 Chloride 103 107 Carbon Dioxide 28 24 BUN 15 10 Creatinine 0.92 0.67 Glucose 83 97 Calcium 9.0 8.3 L Liver Function 09/21/24 Range/Units 19:32 Total Bilirubin 0.4 (0.2-1.0) mg/dl AST 12 L (13-39) U/L ALT 14 (7-52) U/L Alkaline Phosphatase 73 (34-104) U/L Albumin 4.1 (3.4-5.0) gm/dl Urine 09/21/24 Range/Units 19:43 Urine Color Yellow Urine Appearance Cloudy A (Clear) Urine pH 7.0 (4.5-7.5) Ur Specific [place] 1.024 (1.000-1.030) Urine Protein Negative (Negative) Urine Glucose (UA) Negative (Negative) (1) Acute deep vein thrombosis (DVT) of left lower extremity Affected thrombotic vein of extremity: other lower extremity vein Qualified Code(s): I82.492 - Acute embolism and thrombosis of other specified deep vein of left lower extremity
[2024-09-22 15:51] LABS: ANTI-Xa, UFH(UnfractionatedHep 0.26 IU/ml (0.3-0.7)
--- NOTE | 2024-09-22 17:32 | Electrocardiogram Report ---
Test Reason : Blood Pressure : */* mmHG Vent. Rate : 113 BPM Atrial Rate : 113 BPM P-R Int : 116 ms QRS Dur : 74 ms QT Int : 322 ms P-R-T Axes : 43 36 35 degrees QTcB Int : 441 ms Sinus tachycardia Otherwise normal ECG No previous ECGs available Confirmed by Garrison Ramsey ([id number]) on 09/22/2024 5:31:59 PM Referred By: REFERRED SELF Confirmed By: Garrison Ramsey
--- NOTE | 2024-09-22 17:42 | Electrocardiogram Report ---
Test Reason : Blood Pressure : */* mmHG Vent. Rate : 100 BPM Atrial Rate : 100 BPM P-R Int : 126 ms QRS Dur : 76 ms QT Int : 352 ms P-R-T Axes : 33 39 9 degrees QTcB Int : 454 ms Normal sinus rhythm Normal ECG When compared with ECG of 21-Sep-2024 19:38, (unconfirmed) T wave amplitude has decreased in Anterior leads Confirmed by Garrison Ramsey ([id number]) on 09/22/2024 5:42:24 PM Referred By: REFERRED SELF Confirmed By: Garrison Ramsey
[2024-09-22 23:32] LABS: ANTI-Xa, UFH(UnfractionatedHep 0.27 IU/ml (0.3-0.7)
[2024-09-23 06:37] LABS: Hematocrit (blood only) 34.2 % (37.0-47.0); Hemoglobin 10.9 g/dl (12.0-16.0); Mean Corpuscular Hemoglobin 23.4 pg (25.0-34.0); Mean Corpuscular Volume 73.4 fL (80.0-100.0); Platelet Count 309 K/uL (130-400); RDW Standard Deviation 44.4 fL (36.4-46.3); Red Blood Count 4.66 M/uL (4.20-5.40); White Blood Count 11.01 K/ul (4.8-10.8)
[2024-09-23 07:02] LABS: Anion Gap 6.0 (3-11); Blood Urea Nitrogen 12.0 mg/dl (6-23); Calcium 8.3 mg/dl (8.6-10.3); Carbon Dioxide 25.0 mmol/L (21-32); Chloride 106.0 mmol/L (98-107); Creatinine Clr Calc Pharmacy 92.7 ml/min; Glucose 96.0 mg/dl (70-99(Fasting)); Potassium 3.7 mmol/L (3.5-5.1); Sodium 137.0 mmol/L (136-145)
[2024-09-23 07:15] LABS: ANTI-Xa, UFH(UnfractionatedHep 0.31 IU/ml (0.3-0.7)
[2024-09-23 12:27] LABS: ANTI-Xa, UFH(UnfractionatedHep 0.26 IU/ml (0.3-0.7)
--- NOTE | 2024-09-23 14:03 | Hospitalist Progress Note ---
Date of Service September 23, 2024 Assessment & Plan (1) Acute deep vein thrombosis (DVT) of left lower extremity: Plan: 34 year-old female with past medical history significant for right leg DVT during comes because of swelling and pain in the left lower extremity and found to have DVT and also bilateral PE. Since Friday she noticed pain in the left lower extremity and today noticed swelling in the left leg which prompted her come to the ER. Denies any fevers. No chest pain or shortness of breath. No cough. No runny nose or sore throat. No nausea. No abdominal pain. Normal bowel and bladder movements. Denies blood in stools. Hemodynami cs are okay. In 2012 during her first at 13 weeks she was found to have PE and she was treated with Lovenox. And from [id number] she had 3 pregnancies and all the pregnancies she was treated with Lovenox and it was stopped after 6 months post . From 2014 she is not on any blood thinners. Family history significant for grandfather having blood clots. Couple of weeks ago she had bee bite treated with steroid and antibiotic.No recent surgery or long distance travel. Acute DVT of left lower extremity Acute bilateral PE Acute bilateral PE likely due to acute DVT's of left popliteal vein extending inferiorly through the peroneal and posterior tibial veins. H/O DVT in the right leg during in 2012 Unprovoked PE, DVT -Hypercoagulable workup pending --ECHO: EF 60 to 65%. No significant valvular disease. Very minimal extracardiac [id number] shunt. -Continue IV heparin --Started on Coumadin today --Monitor INR Saturating well on room air Advised to follow-up with hematology and cardiology as outpatient Continue current management today DVT Px: IV heparin+ Coumadin CODE STATUS Full code Disposition Expect to discharge home when stable Admission and Anticipated Discharge Date Admission Date: September 22, 2024 Subjective Patient is seen and examined at bedside Still has some pleuritic pain and calf pain Leg erythema improving No bleeding issues while on IV heparin No other complaints today Denies any dyspnea, dizziness, nausea, vomiting, abdominal pain Saturating well on room air Review of Systems Review of Systems: All systems reviewed & are unremarkable except as noted in Subjective Physical Exam Physical Exam: Physical Exam: Vitals signs as noted above General Appearance:Moderately built and nourished, no apparent distress Head: normocephalic, Atraumatic Eyes: normal inspection, EOMI Neck: supple, Trachea midline Respiratory/Chest: Normal breath sounds, CTA, No accessory muscle use Cardiovascular: S1, S2, No murmur Abdomen/GI:Soft, Non tender, Bowel sounds present Extremities/Musculoskeletal:normal inspection, no edema Neurologic/Psych:AAOX3, grossly no focal neurological deficits Skin: normal color, warm Results & Data Results & Data Vital Signs (Past 12 Hours) Vital Signs Temp Pulse Pulse Resp BP BP Pulse Ox 09/23/24 11:30 09/23/24 11:29 37 C 89 20 115/76 98 09/23/24 07:49 36.8 C 92 H 18 132/90 100 09/23/24 06:00 09/23/24 04:00 36.8 C 84 18 118/77 98 Pulse Ox O2 Del Method O2 Del Method 09/23/24 11:30 Room Air 09/23/24 11:29 Room Air 09/23/24 07:49 Room Air 09/23/24 06:00 98 Room Air 09/23/24 04:00 Room Air Laboratory Results Short CBC 09/23/24 Range/Units 05:33 WBC 11.01 H (4.8-10.8) K/ul Hgb 10.9 L (12.0-16.0) g/dl Hct 34.2 L (37.0-47.0) % Plt Count 309 (130-400) K/uL BMP 09/23/24 05:33 Sodium 137 Potassium 3.7 Chloride 106 Carbon Dioxide 25 BUN 12 Creatinine 0.75 Glucose 96 Calcium 8.3 L (1) Acute deep vein thrombosis (DVT) of left lower extremity Affected thrombotic vein of extremity: other lower extremity vein Qualified Code(s): I82.492 - Acute embolism and thrombosis of other specified deep vein of left lower extremity
[2024-09-23] MEDS: WARFARIN SOD 7.5 MG TAB PO SCH (16:27)
[2024-09-23 19:47] LABS: ANTI-Xa, UFH(UnfractionatedHep 0.29 IU/ml (0.3-0.7)
[2024-09-24 02:53] LABS: ANTI-Xa, UFH(UnfractionatedHep 0.35 IU/ml (0.3-0.7)
[2024-09-24 04:51] LABS: Hematocrit (blood only) 34.5 % (37.0-47.0); Hemoglobin 11.0 g/dl (12.0-16.0); Mean Corpuscular Hemoglobin 23.4 pg (25.0-34.0); Mean Corpuscular Volume 73.2 fL (80.0-100.0); Platelet Count 329 K/uL (130-400); RDW Standard Deviation 44.4 fL (36.4-46.3); Red Blood Count 4.71 M/uL (4.20-5.40); White Blood Count 12.15 K/ul (4.8-10.8)
[2024-09-24 05:04] LABS: Anion Gap 9.0 (3-11); Blood Urea Nitrogen 11.0 mg/dl (6-23); Calcium 8.8 mg/dl (8.6-10.3); Carbon Dioxide 22.0 mmol/L (21-32); Chloride 106.0 mmol/L (98-107); Creatinine Clr Calc Pharmacy 88.0 ml/min; Glucose 103.0 mg/dl (70-99(Fasting)); Potassium 3.8 mmol/L (3.5-5.1); Sodium 137.0 mmol/L (136-145)
[2024-09-24 05:56] LABS: ANTI-Xa, UFH(UnfractionatedHep 0.36 IU/ml (0.3-0.7)
[2024-09-24 05:59] LABS: INR 1.0 (0.9-1.1); Prothrombin Time 10.5 Seconds (9.0-12.0)
[2024-09-24 07:02] VITALS: RESP 16; TEMP 98.4
[2024-09-24] MEDS ORDERED: ENOXAPARIN 1 MG/KG SC SCH (08:30)
[2024-09-24] MEDS: ENOXAPARIN 80 MG/0.8 ML SYR SQ SCH (08:47)
[2024-09-24] MEDS: POLYETHYLENE (MIRALAX) 17 GM PACK PO PRN (08:49)
--- NOTE | 2024-09-24 11:13 | Hospitalist Progress Note ---
Date of Service September 24, 2024 Assessment & Plan (1) Acute deep vein thrombosis (DVT) of left lower extremity: Plan: 34 year-old female with past medical history significant for right leg DVT during comes because of swelling and pain in the left lower extremity and found to have DVT and also bilateral PE. Since Friday she noticed pain in the left lower extremity and today noticed swelling in the left leg which prompted her come to the ER. Denies any fevers. No chest pain or shortness of breath. No cough. No runny nose or sore throat. No nausea. No abdominal pain. Normal bowel and bladder movements. Denies blood in stools. Hemodynam ics are okay. In 2012 during her first at 13 weeks she was found to have PE and she was treated with Lovenox. And from [id number] she had 3 pregnancies and all the pregnancies she was treated with Lovenox and it was stopped after 6 months post . From 2014 she is not on any blood thinners. Family history significant for grandfather having blood clots. Couple of weeks ago she had bee bite treated with steroid and antibiotic.No recent surgery or long distance travel. Acute DVT of left lower extremity Acute bilateral PE Acute bilateral PE likely due to acute DVT's of left popliteal vein extending inferiorly through the peroneal and posterior tibial veins. H/O DVT in the right leg during in 2012 Unprovoked PE, DVT -Hypercoagulable workup pending --ECHO: EF 60 to 65%. No significant valvular disease. Very minimal extracardiac [id number] shunt. -Continue IV heparin>> transition to Lovenox -- Continue Coumadin --Monitor INR: 1.0 Saturating well on room air Advised to follow-up with hematology and cardiology as outpatient Needs follow-up with Coumadin clinic on discharge Plan to discharge home today DVT Px: IV heparin+ Coumadin CODE STATUS Full code Disposition Home Admission and Anticipated Discharge Date Admission Date: September 22, 2024 Subjective Patient is seen and examined at bedside Pleuritic pain resolved Still has some calf pain but much improved Denies any dyspnea, dizziness, nausea, vomiting, abdominal pain Saturating well on room air Plan to discharge home today Review of Systems Review of Systems: All systems reviewed & are unremarkable except as noted in Subjective Physical Exam Physical Exam: Physical Exam: Vitals signs as noted above General Appearance:Moderately built and nourished, no apparent distress Head: normocephalic, Atraumatic Eyes: normal inspection, EOMI Neck: supple, Trachea midline Respiratory/Chest: Normal breath sounds, CTA, No accessory muscle use Cardiovascular: S1, S2, No murmur Abdomen/GI:Soft, Non tender, Bowel sounds present Extremities/Musculoskeletal:normal inspection, no edema Neurologic/Psych:AAOX3, grossly no focal neurological deficits Skin: normal color, warm Results & Data Results & Data Vital Signs (Past 12 Hours) Vital Signs Temp Pulse Pulse Pulse Resp BP BP 09/24/24 07:49 80 09/24/24 07:01 36.9 C 75 16 122/82 09/24/24 06:00 09/24/24 03:15 36.8 C 77 18 119/74 09/23/24 23:44 36.8 C 92 H 18 120/80 Pulse Ox Pulse Ox O2 Del Method O2 Del Method 09/24/24 07:49 09/24/24 07:01 97 Room Air 09/24/24 06:00 98 Room Air 09/24/24 03:15 98 Room Air 09/23/24 23:44 98 Room Air Laboratory Results Short CBC 09/24/24 Range/Units 04:23 WBC 12.15 H (4.8-10.8) K/ul Hgb 11.0 L (12.0-16.0) g/dl Hct 34.5 L (37.0-47.0) % Plt Count 329 (130-400) K/uL BMP 09/24/24 04:23 Sodium 137 Potassium 3.8 Chloride 106 Carbon Dioxide 22 BUN 11 Creatinine 0.79 Glucose 103 H Calcium 8.8 (1) Acute deep vein thrombosis (DVT) of left lower extremity Affected thrombotic vein of extremity: other lower extremity vein Qualified Code(s): I82.492 - Acute embolism and thrombosis of other specified deep vein of left lower extremity
--- NOTE | 2024-09-24 11:31 | Discharge Summary ---
Date of Service September 24, 2024 Admission HPI Per Admitting Provider 34 year-old female with past medical history significant for right leg DVT during comes because of swelling and pain in the left lower extremity and found to have DVT and also bilateral PE. Since Friday she noticed pain in the left lower extremity and today noticed swelling in the left leg which prompted her come to the ER. Denies any fevers. No chest pain or shortness of breath. No cough. No runny nose or sore throat. No nausea. No abdominal pain. Normal bowel and bladder movements. Denies blood in stools. Hemodynamics are okay. In 2012 during her first at 13 weeks she was found to have PE and she was treated with Lovenox. And from [id number] she had 3 pregnancies and all the pregnancies she was treated with Lovenox and it was stopped after 6 months post . From 2014 she is not on any blood thinners. Family history significant for grandfather having blood clots. Couple of weeks ago she had bee bite treated with steroid and antibiotic.No recent surgery or long distance travel. Past medical history as mentioned above. Past surgical history. 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 Social history. No smoking. No alcoholism. No drug use. Family history. Grandfather had blood clots Admission Exam Per Admitting Provider General- Not in distress Head- atraumatic Eyes- PERRL. ENT- oropharynx clear Neck- supple, no JVD. Lungs- clear to auscultation no wheezing or crackles Heart- regular rhythm; no murmur, no gallop. Abdomen- normal bowel sounds, soft, nontender, no distension Extremities- Left leg is mildly swollen and erythematous and tender Neuro- alert, oriented PERRL, no facial palsy; no dysarthria; moves extremities Principal Diagnosis Acute deep vein thrombosis of left leg Acute bilateral pulmonary embolism Discharge Data Allergies Allergy/AdvReac Type Severity Reaction Status Date / Time diphenhydramine Allergy Intermediate HIVES Verified 09/21/24 21:52 ibuprofen Allergy Intermediate HIVES Verified 09/21/24 21:52 oxycodone Allergy Intermediate HIVES Verified 09/21/24 21:52 lidocaine Allergy Mild Rash Verified 09/21/24 21:52 Consultations 09/22/24 01:49 ED Decision to Admit Stat Procedures Performed Laboratory Results WBC 12.15 K/ul (4.8-10.8) H 09/24/24 04:23 RBC 4.71 M/uL (4.20-5.40) 09/24/24 04:23 Hgb 11.0 g/dl (12.0-16.0) L 09/24/24 04:23 Hct 34.5 % (37.0-47.0) L 09/24/24 04:23 MCV 73.2 fL (80.0-100.0) L 09/24/24 04:23 MCH 23.4 pg (25.0-34.0) L 09/24/24 04:23 MCHC 31.9 g/dL (32.0-36.0) L 09/24/24 04:23 RDW Std Deviation 44.4 fL (36.4-46.3) 09/24/24 04:23 RDW Coeff of Janina 16.9 % (11.5-14.5) H 09/24/24 04:23 Plt Count 329 K/uL (130-400) 09/24/24 04:23 MPV 10.3 fL (9.4-12.4) 09/24/24 04:23 Immature Gran % (Auto) 0.5 % 09/22/24 07:57 Neut % (Auto) 61.6 % 09/22/24 07:57 Lymph % (Auto) 26.1 % 09/22/24 07:57 [place] % (Auto) 6.1 % 09/22/24 07:57 Eos % (Auto) 5.0 % 09/22/24 07:57 Baso % (Auto) 0.7 % 09/22/24 07:57 Neut # (Auto) 6.34 K/uL (1.40-6.50) 09/22/24 07:57 Lymph # (Auto) 2.69 K/uL (1.20-3.40) 09/22/24 07:57 [place] # (Auto) 0.63 K/uL (0.11-0.59) H 09/22/24 07:57 Eos # (Auto) 0.51 K/uL (0.00-0.50) H 09/22/24 07:57 Baso # (Auto) 0.07 K/uL (0.00-0.20) 09/22/24 07:57 Immature Gran # (Auto) 0.05 K/uL (0.01-0.20) 09/22/24 07:57 PT 10.5 Seconds (9.0-12.0) 09/24/24 04:23 INR 1.0 (0.9-1.1) 09/24/24 04:23 APTT 26 Seconds (21-31) 09/21/24 19:32 PTT Ratio 1.0 09/21/24 19:32 Heparin Anti-Xa, Unfract 0.36 IU/ml (0.3-0.7) 09/24/24 04:23 Sodium 137 mmol/L (136-145) 09/24/24 04:23 Potassium 3.8 mmol/L (3.5-5.1) 09/24/24 04:23 Chloride 106 mmol/L (98-107) 09/24/24 04:23 Carbon Dioxide 22 mmol/L (21-32) 09/24/24 04:23 Anion Gap 9 (3-11) 09/24/24 04:23 BUN 11 mg/dl (6-23) 09/24/24 04:23 Creatinine 0.79 mg/dl (0.6-1.2) 09/24/24 04:23 Est Cr Clr Drug Dosing 88.0 ml/min 09/24/24 04:23 eGFR 99.98 09/24/24 04:23 BUN/Creatinine Ratio 13.9 (10-20) 09/24/24 04:23 Glucose 103 mg/dl (70-99(Fasting)) H 09/24/24 04:23 Calcium 8.8 mg/dl (8.6-10.3) 09/24/24 04:23 Magnesium 2.0 mg/dl (1.7-2.4) 09/22/24 07:57 Total Bilirubin 0.4 mg/dl (0.2-1.0) 09/21/24 19:32 AST 12 U/L (13-39) L 09/21/24 19:32 ALT 14 U/L (7-52) 09/21/24 19:32 Alkaline Phosphatase 73 U/L (34-104) 09/21/24 19:32 Troponin I High Sens 3.0 pg/ml (0-14) 09/22/24 07:57 Total Protein 7.5 gm/dl (6.0-8.3) 09/21/24 19:32 Albumin 4.1 gm/dl (3.4-5.0) 09/21/24 19:32 Globulin 3.4 gm/dl (2.5-4.0) 09/21/24 19:32 Albumin/Globulin Ratio 1.2 (0.9-2) 09/21/24 19:32 HCG, Qual Negative (Negative) 09/21/24 19:32 Urine Color Yellow 09/21/24 19:43 Urine Appearance Cloudy (Clear) A 09/21/24 19:43 Urine pH 7.0 (4.5-7.5) 09/21/24 19:43 Ur Specific [place] 1.024 (1.000-1.030) 09/21/24 19:43 Urine Protein Negative (Negative) 09/21/24 19:43 Urine Glucose (UA) Negative (Negative) 09/21/24 19:43 Urine Ketones Trace (Negative) H 09/21/24 19:43 Urine Blood Negative (Negative) 09/21/24 19:43 Urine Nitrite Negative (Negative) 09/21/24 19:43 Urine Bilirubin Negative (Negative) 09/21/24 19:43 Urine Urobilinogen Negative (Negative) 09/21/24 19:43 Ur Leukocyte Esterase 2+ (Negative) H 09/21/24 19:43 Urine WBC (Auto) 6-10 /hpf (0-5) H 09/21/24 19:43 Urine RBC (Auto) 0-2 /hpf (0-2) 09/21/24 19:43 U Hyaline Cast (Auto) 0-2 /lpf (0-2) 09/21/24 19:43 U Epithel Cells (Auto) 6-10 /hpf (0-2) H 09/21/24 19:43 Urine Bacteria (Auto) None Seen (None Seen) 09/21/24 19:43 Urine Comment 09/21/24 19:43 Impressions Venous Doppler Study 09/21/24 19:30 CR Exam(s): US VENOUS LEFT LOWER EXTREMITY EXAM: US Duplex Left Lower Extremity Veins CLINICAL HISTORY: Reason for exam: Leg deep vein thrombosis (DVT) suspected. TECHNIQUE: Real-time duplex ultrasound scan of the left lower extremity veins integrating B-mode two-dimensional vascular structure, Doppler spectral analysis, color flow Doppler imaging and compression. COMPARISON: No relevant prior studies available. FINDINGS: Deep veins: Unremarkable. No DVT in the visualized common femoral, femoral, proximal deep femoral veins. Occlusive thrombus within the distal left popliteal vein extending through the. Posterior tibial and peroneal veins to the ankle. The veins demonstrate normal color flow, are normally compressible, with normal phasic flow and/or augmentation response. Superficial veins: Unremarkable. No thrombus in the visualized great saphenous vein. Soft tissues: No acute findings. No popliteal cyst. IMPRESSION: DVT involving the distal popliteal vein extending inferiorly through the peroneal and posterior tibial veins to the ankle. Communications: Call Doctor DVT – acute, progressing Electronically signed by: Rogelio Loredo MD 09/21/24 22:56 PM Chest CTA 09/21/24 23:27 EXAM: CT angio chest PE protocol CLINICAL HISTORY: Pulmonary embolism. TECHNIQUE: Contiguous 3.[address] images of the chest were acquired with the administration of intravenous contrast. Coronal and sagittal reconstructions were obtained. 118 ml Optiray 320 was administered for post-contrast images. One of the following dose reduction techniques was utilized for this exam: Automated exposure control, adjustment of the mA and/or kV according to patient size, and use of iterative reconstruction. CTDI: 23.91 mGy, DLP: 646.68 mGy-cm COMPARISON: None. FINDINGS: Lungs: Ground-glass opacities are noted at the dependent portions of both lungs, which could represent exaggerated gravity-dependent atelectasis. Mosaic pattern of perfusion in the lower lobes. A small area of consolidation is noted in the posterior segment of the right lower lobe. No pleural effusion or pleural thickening. Mediastinum: No mediastinal mass or abnormal lymphadenopathy. Heart and Great Vessels: Normal heart size and configuration. No pericardial effusion. Normal caliber and course of the thoracic aorta and other great vessels. Pulmonary Arteries: The pulmonary trunk measures 2.4 cm. The right pulmonary artery measures 1.6 cm. The left pulmonary artery measures 1.4 cm. A subtle linear density is noted at the origin of the left main pulmonary artery, which could be due to motion artifact. A subtle small pulmonary embolism cannot be ruled out. No filling defects in the pulmonary trunk and right main pulmonary artery. Multiple filling defects are noted in the segmental and subsegmental branches of the right lower lobe arteries. A filling defect with focal expansion is noted in the posterolateral trunk of the right lower lobe artery, extending to its subsegmental branches. A filling defect is noted in the medial segmental branch of the right middle lobe artery. A filling defect is noted in a branch of the posterior segmental artery of the left lower lobe (image #[id number]/series [id number]). Bones: Multilevel Schmorl's nodes are noted. Chest Wall: Heterogeneous density of both breasts with likely cystic changes. Upper Abdomen: No abnormalities were noted in the visualized upper abdominal organs. Thyroid: Evidence of left thyroidectomy. Unremarkable right thyroid gland apart from the suggestion of microcystic changes at its posterior aspect. IMPRESSION: 1. Bilateral segmental and subsegmental acute pulmonary embolisms, more on the right side. 2. A mosaic pattern of perfusion in both lower lobes, a small area of consolidation is noted in the posterior segment of the right lower lobe could be atelectasis versus a small pulmonary infarct. Clinical correlation is advised. Electronically signed by Jimmy Schuler 09-22-2024 01:24 AM Ordered Studies 09/21/24 19:30 US venous doppler LE LT Stat 09/21/24 23:27 CT angio chest PE protocol Stat Hospital Course (1) Acute deep vein thrombosis (DVT) of left lower extremity: 34 year-old female with past medical history significant for right leg DVT during comes because of swelling and pain in the left lower extremity and found to have DVT and also bilateral PE. Since Friday she noticed pain in the left lower extremity and today noticed swelling in the left leg which prompted her come to the ER. Denies any fevers. No chest pain or shortness of breath. No cough. No runny nose or sore throat. No nausea. No abdominal pain. Normal bowel and bladder movements. Denies blood in stools. Hemodynamics are okay. In 2012 during her first at 13 weeks she was found to have PE and she was treated with Lovenox. And from [id number] she had 3 pregnancies and all the pregnancies she was treated with Lovenox and it was stopped after 6 months post . From 2014 she is not on any blood thinners. Family history significant for grandfather having blood clots. Couple of weeks ago she had bee bite treated with steroid and antibiotic.No recent surgery or long distance travel. Acute DVT of left lower extremity Acute bilateral PE Acute bilateral PE likely due to acute DVT's of left popliteal vein extending inferiorly through the peroneal and posterior tibial veins. H/O DVT in the right leg during in 2013 Unprovoked PE, DVT -Hypercoagulable workup pending --ECHO: EF 60 to 65%. No significant valvular disease. Very minimal extracardiac [id number] shunt. -Continue IV heparin>> transition to Lovenox -- Continue Coumadin --Monitor INR: 1.0 Saturating well on room air Advised to follow-up with hematology and cardiology as outpatient Needs follow-up with Coumadin clinic on discharge Plan to discharge home today DVT Px: IV heparin+ Coumadin CODE STATUS Full code Disposition Home Total Time Total Time Spent Total Time Spent (In Minutes): 47 minutes Discharge Plan Discharge Items Patient Disposition: Home - Self-Care Reason For Visit: ACUTE DVT AND PE Discharge Diagnosis: Acute deep vein thrombosis of left leg Acute bilateral pulmonary embolism Condition on Discharge: Fair Activity: Per Instructions section Exercise/Sports: Wait until after follow-up appointment Non-emergency contact: Primary Care Provider and Specialist Call non-emergency contact if: you have any medication questions, your symptoms worsen, your pain is concerning for you and you have a fever Follow-up/Referrals: Bertram Ricks MD [Outside Practitioners] - (Date & Time 09/29/2024 3:40 PM Provider: [facility] Ricks MD [facility] [address] [place] [id number] ) Diet: Heart Healthy Add Attending Provider Instructions: Follow-up with your primary care physician in 1 week Follow-up with your quality assurance qa lab analyst for further evaluation of blood clots as recommended Follow-up with Coumadin clinic on 09/27/24 as recommended for monitoring your PT/INR and adjusting Coumadin dose as recommended. Consider following with your aviation program manager for further discussion on [id number] shunt noted on your echocardiogram -- Your blood work (hypercoagulable workup) is pending at the time of discharge. Follow-up with your physician for results. --Get blood test (PT/INR) on Friday09/27/24 and follow-up with Coumadin clinic for further recommendations --Take Coumadin 7.5 mg today (09/24/24) and then take 5 mg on 09/25/2024 and 09/26/2024. Follow-up with Coumadin clinic for further recommendations on Friday (09/27/2024) -- Continue Lovenox subcutaneous 70 mg twice a day until follow-up with Coumadin clinic on Friday. Duration of treatment with Lovenox to be determined by your primary care physician/Coumadin clinic. Seek immediate medical attention if your symptoms reoccur or worsen Please review medication list provided on discharge for any medication changes as instructed. Please call if you have any questions or problems. You can reach a [facility] hospitalist on duty at [facility] 24 hours a day by calling [phone] Pending Studies at Discharge: Yes Studies:: Hypercoagulable workup Stand-Alone Forms: My [facility], Work/School Release, Smoking Cessation Medications and DC Order Prescriptions: New enoxaparin [Lovenox] 80 mg/0.8 mL Syringe 70 mg subcut Q12H Qty: 10 0RF warfarin 2.5 mg tablet 2.5 mg PO UD Qty: 60 1RF Rx Instructions: As directed by Coumadin Clinic warfarin 5 mg tablet 5 mg PO UD Qty: 60 1RF Rx Instructions: As directed by Coumadin Clinic Continued acetaminophen [Tylenol] 325 mg Tablet 650 mg PO DIRECTED PRN (Reason: Pain) Discharge Orders: Discharge Order (Routine); Ordered 09/24/24 Ordered By: Erasmo Villanueva Admission Data Admit Date/Time: 09/22/24 03:20 Attending Provider: Erasmo Villanueva Admit Provider: Harry Rowland Primary Care Provider: PCP,NO Other Providers: Harry Rowland
[2024-09-24 11:52] VITALS: PULSE 95; O2SAT 99
[2024-09-24 12:40] VITALS: BP 119/74
== END 2024-09-24 13:17 | disposition home or self-care (01) | DRG 299 ==
LOC: ED 19:25 → EDINP 09-22 03:20 → SUATTDRO 09-22 03:20 → 2W 09-22 05:41